=== PATIENT | male | born 2000 | race Caucasian/White ===

== ENCOUNTER 2021-08-01 13:41 | Emergency (ER) | payer OTHER, SELFPAY ==
[2021-08-01] VITALS (8 sets, daily range): BP systolic 113–144; BP diastolic 63–90; PULSE 65–90; RESP 15–18; TEMP 36.8; O2SAT 95–100; BMI 23.7
--- NOTE | 2021-08-01 13:36 | ECG_ITS ---
APPROVED REPORT Exam: Resting ECG HR:78 bpm ECG Measurements Heart Rate 78 AXES GA 164 P 64 QRSd 88 QRS 80 QT 312 T 56 QTc 355 Conclusion Normal sinus rhythm Normal ECG Electronically signed by : Jose Luis Monae MD 08/04/2021 13:29:22
--- NOTE | 2021-08-01 14:10 | XR_ITS ---
PROCEDURE INFORMATION: Exam: XR Chest Exam date and time: 08/01/2021 2:10 PM Age: 21 years old Clinical indication: Sternal or substernal pain; Patient HX: Chest pain for a month, patient vapes, no chest surgeries. TECHNIQUE: Imaging protocol: XR of the chest. Views: 2 views. COMPARISON: No relevant prior studies available. FINDINGS: Lungs: Unremarkable. No consolidation. Pleural spaces: Unremarkable. No pleural effusion. No pneumothorax. Heart/Mediastinum: Unremarkable. No cardiomegaly. Bones/joints: Unremarkable. IMPRESSION: No acute findings.
[2021-08-01 14:18] LABS: Basophils # 0.1 K/mm3 (0-0.2); Basophils % 2.8 % (0.1-2.0); Chloride 99 mmol/L (98-107); Eosinophils % 0.4 % (0.1-12.0); Hematocrit 49.6 % (42.0-52.0); Hemoglobin 16.1 g/dL (14.1-18.0); Lymphocytes # 1.4 K/mm3 (0.7-4.5); Lymphocytes % 38.7 % (10-50); Mean Corpuscular HGB Conc 32.5 g/dL (31.8-35.4); Mean Corpuscular Hemoglobin 30.2 pg (27.0-31.2); Mean Platelet Volume 8.3 fl (7.4-10.4); Monocytes # 0.3 K/mm3 (0.1-1.0); Monocytes % 8.9 % (1.7-9.3); Neutrophils # 1.8 K/mm3 (1.8-7.8); Neutrophils % 49.3 % (37.0-80.0); Platelet Count 176 K/mm3 (142-424); Potassium 3.7 mmoL/L (3.5-5.1); Red Blood Count 5.34 M/mm3 (4.60-6.20); Red Cell Distribution Width 13.6 % (11.5-17.5); Sodium 140 mmol/L (136-145); White Blood Count 3.7 K/mm3 (4.5-13.0)
[2021-08-01 14:21] LABS: Anion Gap 13.7 mEq/L (5-15); Blood Urea Nitrogen 15 mg/dl (9-20); Carbon Dioxide 31 mmol/L (22.0-30.0); Creatinine Clearance Estimated 120 mL/min (50-200); Estimated Glomerular Filt Rate 77 ml/min (>60); GFR (African American) 93 ML/MIN (>60); Glucose 94 mg/dl (74-100)
[2021-08-01 14:34] LABS: Troponin I < 0.01 ng/ml (0.00-0.034)
--- NOTE | 2021-08-01 15:02 | [facility].EDCP ---
ED Disposition Clinical Impression: Atypical chest pain Disposition: Home, Self-Care Condition on Discharge: Fair Referrals: Gabe Monk [Primary Care Provider] - - Critical Care Critical Care Time: No Attestation: On 08/01/21, the high probability of a clinically significant, sudden or life threatening deterioration of the following system(s) required my full and direct attention, intervention and personal management. The time I documented below is in addition to time spent performing reported procedures but includes the following listed in this critical care notation. Medical Decision Making - Medical Records Medical records reviewed: Yes: I reviewed the patient's medical records. - [place] Inquiry Pt receiving controlled substance: No [place] was queried for this patient: No Vital Signs: 08/01/21 13:42 08/01/21 14:30 08/01/21 15:01 Temperature 98.3 F Temperature Source Oral Pulse Rate 90 89 Pulse Rate [Left Radial] 70 Respiratory Rate 18 16 15 Blood Pressure 132/82 114/68 Blood Pressure [Right Arm] 144/90 H Blood Pressure Mean 94 87 Blood Pressure Mean [Right Arm] 108 Blood Pressure Source [Right Arm] Automatic Cuff Blood Pressure Position [Right Arm] Sitting 02 Sat by Pulse Oximetry 95 99 99 Oxygen Delivery Method Room Air 08/01/21 15:30 08/01/21 16:01 08/01/21 16:30 Temperature Temperature Source Pulse Rate 74 65 82 Pulse Rate [Left Radial] Respiratory Rate 16 16 15 Blood Pressure 125/79 113/64 127/63 Blood Pressure [Right Arm] Blood Pressure Mean 86 81 87 Blood Pressure Mean [Right Arm] Blood Pressure Source [Right Arm] Blood Pressure Position [Right Arm] 02 Sat by Pulse Oximetry 99 100 98 Oxygen Delivery Method 08/01/21 17:00 Temperature Temperature Source Pulse Rate 81 Pulse Rate [Left Radial] Respiratory Rate 16 Blood Pressure 116/68 Blood Pressure [Right Arm] Blood Pressure Mean Blood Pressure Mean [Right Arm] Blood Pressure Source [Right Arm] Blood Pressure Position [Right Arm] 02 Sat by Pulse Oximetry 99 Oxygen Delivery Method - Lab Data Lab results reviewed: Yes: I reviewed the patient's lab results. Lab Results 08/01/21 13:45: WBC 3.7 L, RBC 5.34, Hgb 16.1, Hct 49.6, MCV 93.0, MCH 30.2, MCHC 32.5, RDW 13.6, Plt Count 176, MPV 8.3, Neut % (Auto) 49.3, Lymph % (Auto) 38.7, [place] % (Auto) 8.9, Eos % (Auto) 0.4, Baso % (Auto) 2.8 H, Neut # (Auto) 1.8, Lymph # (Auto) 1.4, [place] # (Auto) 0.3, Eos # (Auto) 0.0, Baso # (Auto) 0.1 08/01/21 13:45: Sodium 140, Potassium 3.7, Chloride 99, Carbon Dioxide 31 H, Anion Gap 13.7, BUN 15, Creatinine 1.20, Estimated Creat Clear 120, Estimated GFR 77, Est GFR ( Amer) 93, Glucose 94, Calcium 9.0, Troponin I < 0.01 08/01/21 16:38: Troponin I < 0.01 08/01/21 16:55: SARS-CoV-2 (PCR) Detected A, Influenza A Untype (PCR) Not detected, Influenza Type B (PCR) Not detected Result diagrams: 08/01/21 13:45 08/01/21 13:45 Orders (Tests/Meds): ED MEDICATIONS Discontinued Medications Generic Name Dose Route Start Last Admin Trade Name Freq PRN Reason Stop Dose Admin Belladonna Alkaloids 60 ml 08/01/21 14:40 08/01/21 14:54 Gi Cocktail 60ml Udc PO 08/01/21 14:41 60 ml ONCE ONE Administration ORDERS Category Date Time Status Troponin I Q3H Lab 08/01/21 20:15 Ordered Medical Decision Narrative: Is a 21-year-old male with no past medical history presenting to the ED with chest pain. Patient is awake, alert, not in acute distress. Patient is medically stable, afebrile. Patient's physical exam is unremarkable. Chest pain work-up with troponin, EKG, chest x-ray is performed. Work-up is negative. Patient is stable for discharge. Patient is given strict return precautions and follow-up instructions. Chest Pain HPI - General Chief Complaint: Chest Pain Stated Complaint: chest pain Time Seen by Provider: 08/01/21 15:02 Mode of Arrival: Ambulatory [facility]
--- NOTE | 2021-08-01 16:02 | PC.NURSE ---
Pt is sitting in bed resting comfortably
[2021-08-01 17:32] LABS: Influenza A, PCR Not Detected (NotDetected); Influenza B, PCR Not Detected (NotDetected)
[2021-08-01 17:58] LABS: Troponin I < 0.01 ng/ml (0.00-0.034)
[2021-08-01 17:59] LABS: Coronavirus 19, PCR Detected (NotDetected)
== END 2021-08-01 18:19 | disposition home or self-care (01) ==
PROVIDERS: Emergency Provider Emergency Medicine; PCP Family Medicine
DX: U07.1 COVID-19 (principal); R07.89 Other chest pain
CPT/HCPCS: 71046; 80048; 84484; 85025; 93005; 99283; C9803; U0003; U0005

== ENCOUNTER 2023-01-04 19:28 | Emergency (ER) | payer SELFPAY ==
[2023-01-04 19:30] VITALS: BP 135/78; PULSE 81; RESP 16; TEMP 36.9; O2SAT 99; BMI 26.9
--- NOTE | 2023-01-04 19:53 | EXP.UTC ---
Discharge Plan Disposition Patient Disposition: Home, Self-Care Condition: Good Prescriptions Prescriptions: New [id number] [Bromfed DM] 2-30-10 mg/5 mL Syrup 10 ml PO Q4H PRN (Reason: Cough) Qty: 240 0RF fluticasone propionate [Flonase Allergy Relief] 50 mcg/actuation spray,suspension 1 - 2 spray intranasal DAILY Qty: 16 0RF Rx Instructions: administer into each nostril daily azithromycin [Zithromax Z-Salvador] 250 mg tablet See Rx Instructions .ROUTE .COMPLEX 5 Days Qty: 6 0RF Rx Instructions: For 250 mg dose pack: take 500 mg today (day 1), then 250 mg for 4 days (days 2-5) methylprednisolone [Medrol (Salvador)] 4 mg tablets,dose pack See Rx Instructions .Route .COMPLEX 6 Days Qty: 21 0RF Rx Instructions: taper pack; Referrals Follow up/Referrals: Casey Monk [Primary Care Provider] - See instructions Activity Restrictions/Add. Instructions Additional Instructions/Restrictions: *Monitor Temp, Over the counter Motrin or Tylenol as directed/as needed Tylenol every 4 hours and Motrin every 6 hours (as long as your family doctor has told you that you can take it) for fever or pain. and straight to ER if unable to lower temp less than 101.0 after medication given *Warm salt water gargles may help to soothe the throat *Throat Lozenges? *Warm fluids like tea with honey may help to soothe the throat? *Sleep elevated *Humidifier/Vaporizer *Flonase 2 sprays in each nostril daily but be aware that it may take 2-3 days before you notice improvement *Bromfed may cause drowsiness. Know how it effects you (your child) before driving, caring for small child, or sending your child to school. Not other antihistamines/allergy medications while taking bromfed Your throat swab was sent for culture. Those results are typically sent to your primary care. Be sure to follow up in 2-3 days with your family doctor/primary care physician if no improvement so they can review those result and treat if necessary. If you don?t have a primary care doctor, I recommend you get one but in the mean time, you will have to return to a walk in clinic Follow up IMMEDIATELY for new or worsening symptoms or no Noticeable improvement over the next 48-72 hours. 911 for difficulty breathing or swallowing Clinical Impressions Clinical Impression: Sinusitis Instructions Patient Instructions: Sore Throat, Sinusitis, DI for Sinusitis, DI for Fever (Symptom) -- Adult Discharge ED Provider: Kimberlee Bartlett [facility] [place] HPI General Stated complaint: sore throat,Congestion Body aches Mode of Arrival: Ambulatory Source of Information: Patient Limitations: No Limitations Time Seen by Provider: 01/04/23 19:53 Description of Symptoms (Recalled from Triage Doc. by RN): Patient reports cough, congestion and slight fever for two days. HEENT Symptoms (Recalled from RN notes): Yes Resp Symptoms (Recalled from RN notes): No Skin Symptoms (Recalled from RN notes): No MS Symptoms (Recalled from RN notes): No Functional Status (Recalled from RN notes): wnl History of Present Illness Provider Complaint: Patient states he has been trying to fight this off but it has got worse States that he has been having sore throat, sinus pain and pressure cough and slight fever that has got worse over the last couple of days States tonight he was feeling worse and feeling achy and throat hurting worse so he came in to get checked Related Data Previous Rx's Medication Instructions Recorded azithromycin 250 mg tablet See Rx Instructions PO .COMPLEX 5 01/04/23 (Zithromax Z-Salvador) days #6 tabs [id number]-QU 10 ml PO Q4H PRN Cough #240 mL 01/04/23 2 mg-30 mg-10 mg/5 mL oral syrup (Bromfed DM) fluticasone propionate 50 1 - 2 spray intranasal DAILY #16 01/04/23 mcg/actuation nasal grams spray,suspension (Flonase Allergy Relief) methylprednisolone 4 mg tablets in See Rx Instructions .Route 01/04/23 a dos
[2023-01-04 20:02] VITALS: BP 135/78; PULSE 81; RESP 16; TEMP 36.9; O2SAT 99
[2023-01-04 20:03] LABS: UTC Strep Screen (Rapid) Negative (Negative)
== END 2023-01-04 20:10 | disposition home or self-care (01) ==
PROVIDERS: Emergency Provider Nurse Practitioner; PCP Pediatrics
DX: J01.90 Acute sinusitis, unspecified (principal); R50.9 Fever, unspecified; R07.0 Pain in throat
CPT/HCPCS: 87880; 99204; 99212; G0463